=== PATIENT | male | born 1955 ===

== ENCOUNTER 2018-12-14 15:41 | Outpatient (CLI) | payer MEDICARE | END 2018-12-14 15:42 | disposition EMS.NT | LOC: EMS 15:41 | PROVIDERS: ATTEND Surgery | DX: S01.81XA Laceration without foreign body of other part of head, initial encounter (principal); S29.9XXA Unspecified injury of thorax, initial encounter; M54.5 Low back pain; R10.9 Unspecified abdominal pain; V95.8XXA Other powered aircraft accidents injuring occupant, initial encounter; Y92.89 Other specified places as the place of occurrence of the external cause ==